=== PATIENT | female | born 1955 | race Caucasian/White ===

== ENCOUNTER 2018-12-03 06:34 | Day surgery (SDC) | payer MEDICARE, OTHER ==
[~2018-12-03] VITALS: Ht 165.1 cm; Wt 89.8 kg
[~2018-12-03 06:34] MED LIST: AMIT50 PO; B-12250 MCG PO; BENAML20/5 PO; CELE100 PO; CELE200 PO; CHOL10002 PO; CYCL0.05OP OP; CYCL10 PO; Cranberry500 M1 PO; Estroven Max400 MCG PO; FENT25TP TOP; FLAX PO; GABA300 PO; HYDACE5325 PO; LAVAP17G PO; LISI20 PO; MILN100T PO; OMEP20ER PO; OMEP40CA12 PO; OXYACE5T PO; POLY500 PO; QUIN324 PO; QUININE; RXHYD5325 PO; STOOL SOFTENER100 MG PO; [UNRECOGNIZED DRUG - OTHER]
--- NOTE | 2018-12-03 07:47 | NUR ---
12/03/18 0747 Kai Heath FIRST IV ATTEMPT IN RH UNSUCCESSFUL, ORSC.BDK 2ND IV ATTEMPT IN RAC SUCCESSFUL, ORSC.BDK
== END 2018-12-03 09:05 | disposition home or self-care (01) ==
LOC: ORSCSDS 06:34
PROVIDERS: Surgery
PROC: 0DJD8ZZ Inspection of Lower Intestinal Tract, Via Natural or Artificial Opening Endoscopic (ICD-10-PCS; principal; 2018-12-03 08:00)
DX: Z12.11 Encounter for screening for malignant neoplasm of colon (principal); I10 Essential (primary) hypertension; Z79.899 Other long term (current) drug therapy
CPT/HCPCS: J0330; J1980; J2405; J7120

== ENCOUNTER → 2019-02-10 | Outpatient (CLI) | payer MEDICARE, OTHER ==
[2019-02-10 15:19] LABS: Anion Gap 8 mmol/L (6-16); Blood Urea Nitrogen 16 mg/dL (8-24); Bun/Creatinine Ratio 18.1 (12.0-20.0); CO2, Blood 27 mmol/L (21-32); Chloride, Blood 99 mmol/L (98-108); Creatinine, Blood 0.89 mg/dL (0.40-1.00); Glomerular Filtration Rate >60 (60-); Glucose, Blood 94 mg/dL (70-99); Potassium, Blood 4.4 mmol/L (3.5-5.5); Sodium, Blood 134 mmol/L (136-145)
== END | disposition home or self-care (01) ==
LOC: LAB 14:50 → LAB SHORT 14:50
PROVIDERS: Physician Assistant
DX: I10 Essential (primary) hypertension (principal)
CPT/HCPCS: 80048